=== PATIENT | male | born 1980 | race Asian ===

== ENCOUNTER → 2020-12-22 15:37 | Outpatient (CLI) | payer OTHER, SELFPAY ==
--- NOTE | 2020-12-22 | DI.MRI.S_ITS ---
PROCEDURE: MR WRIST LT WO CON INDICATIONS: pain in left wrist TECHNIQUE: Noncontrast coronal proton density fast spin echo and T2 fast spin echo with fat saturation; coronal 3-D gradient echo, axial T1 spin echo and T2 fast spin echo with fat saturation, sagittal T1 spin echo through the wrist. COMPARISON: [facility] Outside Film, CR, XR WRIST 3+ VIEWS LEFT, 09/22/2020, 9:35. FINDINGS: Image quality: Limited due to significant susceptibility artifacts from distal radial shaft fixation hardware.. Bones and cartilage: Patient is status post prior internal fixation of distal radius and scaphoid with significant susceptibility artifacts along radial aspect of wrist partially limits evaluation of adjacent structures. No gross marrow edema. No acute fracture or dislocation. Old healed ulnar styloid fracture is seen with well corticated fragment. No suspicious intraosseous lesion. Nonspecific intraosseous cyst formation in distal triquetrum is seen. No evidence of osteonecrosis. Small amount of radiocarpal joint fluid is seen, no gross intra-articular loose body. 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 Carpal ligaments: The scapholunate and lunotriquetral ligaments appear intact. In the absence of intra-articular contrast, the extrinsic carpal ligaments are not well identified. On sagittal images, the pisohamate ligament appears intact. Triangular fibrocartilage complex: The triangular fibrocartilage appears grossly intact. The adjacent meniscal homolog appears normal in the absence of intra-articular contrast. The extensor carpi ulnaris tendon appears mildly thickened with intrasubstance T2 hyperintense signal at the level of ulnar styloid. Tendons and soft tissues: The carpal tunnel structures appear normal, including the median nerve. The ulnar nerve appears normal within Guyon's canal. Rest of the extensor tendon compartments demonstrate normal morphology, without pathologic tendon sheath fluid. No soft tissue ganglion cysts. IMPRESSION: 1. Prior internal fixation of scaphoid and distal radius with significant susceptibility artifacts. No gross marrow edema. No acute fracture or dislocation. 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 2. Suggestion of tendinosis and low-grade intrasubstance partial-thickness tear involving extensor carpi ulnaris tendon at the level of ulnar styloid. No other extensor or flexor tendon pathology is seen. 3. Intrinsic and extrinsic wrist ligaments are grossly intact. 4. Triangular fibrocartilage complex is grossly intact . Dictated by: Dallas Nielson M.D. on 12/22/2020 at 17:06 Approved by: Dallas Nielson M.D. on 12/22/2020 at 17:10
== END ==
PROVIDERS: Referring Provider Orthopaedic Surgery; Visit Provider Orthopaedic Surgery
DX: M25.532 Pain in left wrist (principal)
CPT/HCPCS: 73221